=== PATIENT | male | born 1980 | race Caucasian/White ===

== ENCOUNTER → 2017-11-11 09:53 | Outpatient (REF) | payer OTHER, SELFPAY ==
[2017-11-11 13:53] LABS: Alanine Aminotransferase 64 U/L (12-78); Albumin Level 3.8 gm/dL (3.4-5.0); Albumin/Globulin Ratio 1.3 (1.1-1.8); Alkaline Phosphatase 72 U/L (46-116); Anion Gap 12.8 mEq/L (5-15); Aspartate Amino Transferase 23 U/L (15-37); Bilirubin,Total 0.4 mg/dL (0.2-1.0); Blood Urea Nitrogen 7 mg/dL (7-18); Calcium 8.5 mg/dL (8.5-10.1); Carbon Dioxide 28 mmol/L (21.0-32.0); Chloride 104 mmol/L (98-107); Chol/HDL Ratio 2.5 (1-3.5); Cholesterol 101 mg/dL (140-200); Creatinine,Serum 1.22 mg/dL (0.70-1.30); Estimated Glomerular Filt Rate 67 ml/min (>60); GFR (African American) 81 ML/MIN (>60); Globulin 2.9 gm/dl (1.3-3.2); Glucose 115 mg/dL (74-106); HDL Cholesterol 41 mg/dL (27-67); LDL Cholesterol 32 mg/dL (0-130); Potassium 3.8 mmoL/L (3.5-5.1); Sodium 141 mmol/L (136-145); Total Protein,Serum 6.7 gm/dL (6.4-8.2); Triglycerides 138 mg/dL (30-200); VLDL Cholesterol 28 mg/dL (0-40)
== END ==
LOC: LAB 09:53
PROVIDERS: Visit Provider Physician Assistant
DX: E78.5 Hyperlipidemia, unspecified (principal)
CPT/HCPCS: 80053; 80061

== ENCOUNTER → 2018-09-30 20:23 | Outpatient (CLI) | payer OTHER, SELFPAY | PROVIDERS: PCP Emergency Medicine; Visit Provider Specialist | DX: G47.33 Obstructive sleep apnea (adult) (pediatric) (principal) | CPT/HCPCS: 95811 ==

== ENCOUNTER → 2020-04-04 18:31 | Outpatient (CLI) | payer BC, SELFPAY ==
[2020-04-04 19:11] LABS: Basophils % 0.3 % (0.1-2.0); Chloride 97 mmol/L (98-107); Eosinophils # 0.1 K/mm3 (0.0-0.4); Eosinophils % 1.5 % (0.1-12.0); Hematocrit 47.5 % (42.0-52.0); Hemoglobin 16.5 g/dL (14.1-18.0); Lymphocytes # 1.1 K/mm3 (0.7-4.5); Lymphocytes % 20.9 % (10-50); Mean Corpuscular HGB Conc 34.8 g/dL (31.8-35.4); Mean Corpuscular Hemoglobin 30.3 pg (27.0-31.2); Mean Corpuscular Volume 86.9 fl (80-94); Mean Platelet Volume 10.4 fl (7.4-10.4); Monocytes # 0.4 K/mm3 (0.1-1.0); Monocytes % 7.8 % (1.7-9.3); Neutrophils # 3.6 K/mm3 (1.8-7.8); Neutrophils % 69.6 % (37.0-80.0); Platelet Count 174 K/mm3 (142-424); Potassium 4.5 mmoL/L (3.5-5.1); Red Blood Count 5.47 M/mm3 (4.60-6.20); Red Cell Distribution Width 13.6 % (11.5-17.5); Sodium 137 mmol/L (136-145); White Blood Count 5.1 K/mm3 (4.8-10.8)
[2020-04-04 19:14] LABS: Alanine Aminotransferase 63 U/L (12-78); Albumin Level 4.6 g/dl (3.5-5.0); Albumin/Globulin Ratio 1.8 (1.1-1.8); Alkaline Phosphatase 71 U/L (38-126); Anion Gap 15.5 mEq/L (5-15); Aspartate Amino Transferase 40 U/L (17-59); Bilirubin,Total 0.6 mg/dl (0.2-1.3); Blood Urea Nitrogen 17 mg/dl (9-20); Carbon Dioxide 29 mmol/L (22.0-30.0); Cholesterol 149 mg/dl (140-200); Estimated Glomerular Filt Rate 74 ml/min (>60); GFR (African American) 90 ML/MIN (>60); Globulin 2.6 g/dL (1.3-3.2); Total Protein,Serum 7.2 g/dl (6.3-8.2)
[2020-04-04 19:15] LABS: Calcium 9.1 mg/dl (8.4-10.2); Glucose 79 mg/dl (74-100); HDL Cholesterol 37 mg/dl (40-60)
[2020-04-04 19:18] LABS: Triglycerides 402 mg/dl (30-150)
[2020-04-04 19:31] LABS: T4 (Thyroxine) 7.5 ug/dl (5.53-11.0)
[2020-04-04 19:45] LABS: Thyroid Stimulating Hormone 1.11 uIU/mL (0.465-4.68)
[2020-04-11 13:29] LABS: 1,25 Dihydroxy Vitamin D 41 pg/mL (.); 1,25-Dihydroxy, Vitamin D-2 <10 pg/mL (.); 1,25-Dihydroxy, Vitamin D-3 41 pg/mL (.)
[2020-04-11 13:30] LABS: Testosterone,Total 166 ng/dL (264-916)
== END ==
PROVIDERS: Visit Provider Physician Assistant
DX: R10.9 Unspecified abdominal pain (principal); R53.83 Other fatigue
CPT/HCPCS: 80053; 80061; 82652; 84403; 84436; 84443; 85025

== ENCOUNTER → 2020-04-18 09:31 | Outpatient (CLI) | payer BC, SELFPAY ==
[2020-04-19 10:12] LABS: Testosterone,Total 185 ng/dL (264-916)
== END ==
PROVIDERS: Visit Provider Physician Assistant
DX: R79.89 Other specified abnormal findings of blood chemistry (principal)
CPT/HCPCS: 36415; 84403

== ENCOUNTER → 2020-04-26 11:16 | Outpatient (CLI) | payer BC, SELFPAY ==
[2020-04-26 13:46] LABS: Coronavirus 19 IgG Antibody Negative (Negative); Coronavirus 19 IgM Antibody Negative (Negative)
== END ==
PROVIDERS: Visit Provider Internal Medicine Gastroenterology
DX: Z01.818 Encounter for other preprocedural examination (principal); Z12.11 Encounter for screening for malignant neoplasm of colon
CPT/HCPCS: 36415; 86328

== ENCOUNTER 2020-04-27 07:39 | Day surgery (SDC) | payer BC, SELFPAY ==
[2020-04-24 10:12] VITALS: BMI 35.2
[2020-04-27] VITALS (8 sets, daily range): BP systolic 100–135; BP diastolic 51–79; PULSE 54–79; RESP 16–20; TEMP 36.2–36.6; O2SAT 94–98
--- NOTE | 2020-04-27 08:15 | P.PN_ITS ---
[facility] Anesthesia Checklist - Patient Identification Patient Identification: Arm Band, Verbal (Name & ) - Structural Data Admitted From: Home Planned Operative Procedure/s: EGD/Colonoscopy Consent for Planned Operative Procedure(s) Verified: Yes Verified Documents: Surgical Consent, History and Physical - NPO Status Verified Time NPO: 00:00 - Chart Verification Results Verified: CBC, BMP - Additional verifications Anesthesia Reactions: No - Airway Assessment C-Spine Mobility Assessed: Yes TMJ Mobility Assessed: Yes Dentition: Good Dentition - Neurological Assessment Level of Consciousness: Awake, Alert, Appropriate, Follows Commands Hx Seizures: No Numbness or tingling in extremities: No - Anesthesia Plan Anesthesia Risk discussed: Yes Anesthesia Plan: Verified ASA Class: III Anesthesia Type: MAC [facility] History I have reviewed the patient's past medical history: Yes Medical History: Reports:: Gastroesophageal Reflux Disease(GERD), Hyperlipidemia, Hypertension Denies:: Cancer, Diabetes Mellitus Type 1, Diabetes Mellitus Type 2, Internal Pacemaker, MRSA, Seizures *Have you ever received a pneumonia vaccine?: No *Have you received a flu vaccine this season?: Yes Other Medical History: Reports: Sinus Problems, Other Comment:: obesity, ISAIAH uses CPAP Anesthesia experience/problems:: no prior complications Laterality Cases: Right: Arthroscopy Shoulder Other Surgeries: Yes: Other. No: Pacemaker Amputation: No Fractures: No - *Social History Last grade of school completed: Some college Smoking Status: Former smoker # Packs/Day (cigarettes): 1 #Yrs smoked (if former smoker): 8 Alcohol Intake: never Alcohol Intake Frequency:: other Substance Use Type: denies use *Occupational Status:: employed Housing: house Household Members: family *Travel in the last 8 weeks: None Family Hx:: Diabetes, Heart Attack
--- NOTE | 2020-04-27 08:58 | HMH.PROC ---
[facility] Procedure Note Procedure Note:: Upper Endoscopy Procedure Report: Esophagogastroduodenoscopy with cold biopsies Endoscopost: Omero Locke II, MD Referring Physician: Lyn Laboy PA-C Date of Procedure: April 27, 2020 Equipment: Olympus GIF 180 standard upper endoscope Sedation: MAC sedation Indications: Mr. Anna is a 39-year-old gentleman with dyspepsia and functional bowel disease/IBS. The patient has had symptoms that are new. He reports epigastric abdominal pain at nighttime. He also reports some tightness especially in the lower abdomen, bloating and gassiness. He reports no belching. He has had no dysphagia. He does get some nausea in the mornings and a little early satiety. His heartburn and reflux are controlled with omeprazole. He has had reduced appetite but no weight loss. He does have alternating constipation and loose bowel movements. He reports no melena. He had an upper endoscopy a few years ago in [facility]. Procedure: Prior to the procedure, a history and physical exam was performed, and patient's medications and allergies were reviewed. The risks, benefits and alternatives of the sedation and procedure were discussed with the patient. All questions were answered and informed consent was obtained. The patient was brought to the procedure room. Patient identification and proposed procedure were verified by the physician and the nurse. The patient was placed in a left lateral decubitus position and the scope was passed under direct vision. Throughout the procedure, the patient's blood pressure, pulse, and oxygen saturations were monitored continuously. The upper GI endoscopy was accomplished without difficulty. The patient tolerated the procedure well. Findings: The scope was passed directly into the upper esophagus and advanced to the third portion of the duodenum. The post bulbar duodenum and duodenal bulb were normal with normal mucosa and conniventes. Cold biopsies were taken from the post bulbar duodenum to rule out celiac disease. The scope was withdrawn through a normal duodenal bulb and pylorus into the stomach. There was evidence of linear erythema of the antrum and body consistent with linear reactive gastropathy. The remainder of the antrum, body and fundus of the stomach were grossly normal. Upon retroflexion there was a small 2 cm hiatal hernia. 2 biopsies were taken in the antrum and along the lesser curvature for histology to rule out gastritis and/or H pylori. The scope was then withdrawn into the esophagus. There was no evidence of reflux esophagitis or Colin's. There were tertiary contractions and evidence of moderate esophageal dysmotility. The remainder of the esophageal mucosa was normal. Impression: 1. Nonerosive GERD with moderate esophageal dysmotility and small 2 cm hiatal hernia 2. Linear reactive gastropathy of antrum/body Plan: I will follow-up the biopsies. The patient does have functional dyspepsia and functional bowel disease. I will discuss dietary measures and treatment options. The patient does have obstipation with colonic fermentation. I will proceed with diagnostic colonoscopy.
--- NOTE | 2020-04-27 09:23 | P.PCN_ITS ---
[facility] Procedure Note Procedure Note:: Colonoscopy Procedure Report: Colonoscopy with cold snare polypectomy Endoscopist: Omero Locke II, MD Referring physician: Lyn Laboy PA-C Date of Procedure: April 27, 2020 Equipment: Olympus 180 variable stiffness pediatric colonoscope Sedation: MAC sedation Indication: Mr. Anna is a 39-year-old gentleman who is here for diagnostic colonoscopy. He has had dyspepsia and lower abdominal tightness and discomfort. He reports bloating and some gassiness. He has had bowel irregularity with constipation that may alternate with loose bowel movements. He does have obstipation/incomplete bowel evacuation/incomplete defecation with excessive wiping. Recently he has been taking some combined MiraLAX plus Metamucil). He did note some blood but no mucus. The blood is bright red. He reports that his paternal grandfather had colon cancer and his father had colon polyps. This is his first colonoscopy. Procedure: Prior to the procedure, a history and physical exam was performed, and patient's medications and allergies were reviewed. The risks, benefits and alternatives of the sedation and procedure were discussed with the patient. All questions were answered and informed consent was obtained. The patient was brought to the procedure room. Patient identification and proposed procedure were verified by the physician and the nurse. The patient was placed in a left lateral decubitus position and the scope was passed under direct vision. Throughout the procedure, the patient's blood pressure, pulse, and oxygen saturations were monitored continuously. The colonoscopy was accomplished without difficulty. The patient tolerated the procedure well. Findings: On digital rectal examination there was normal rectal tone. There were no external hemorrhoids. The colonoscope was introduced through the anal canal to the rectum and advanced to the cecum. The ileocecal valve and appendiceal orifice were identified. The scope was advanced a short distance into the ileum which appeared grossly normal. The scope was then withdrawn into the colon. The cecum, ascending and transverse colon and mucosa were grossly normal. There was a 2 to 3 mm polyp in the descending colon removed via cold snare polypectomy. There were very mildly scattered diverticuli throughout the descending and sigmoid colon (LEFT colon). The rectum itself was normal. Upon retroflexion within the rectum there were grade 1 internal hemorrhoids. The preparation was excellent throughout with Ray Preparation Score of 9. The cecal time was 12 minutes. Impression: 1. Diminutive descending colon polyp 2. Mild sigmoid diverticulosis 3. Grade 1 internal hemorrhoids Plan: The patient does have IBS/functional bowel disease. We will discuss additional dietary measures and treatment options. I will follow-up the polyp histology and recommend repeat screening/surveillance colonoscopy in 5 to 10 years based upon the pathology.
== END 2020-04-27 10:35 | disposition home or self-care (01) ==
LOC: OUTP 07:43
PROVIDERS: PCP Emergency Medicine; Visit Provider Internal Medicine Gastroenterology
PROC: 0DJ08ZZ Inspection of Upper Intestinal Tract, Via Natural or Artificial Opening Endoscopic (ICD-10-PCS; CPT 43235; principal; 2020-04-27 09:00)
DX: K63.5 Polyp of colon (principal); K57.30 Diverticulosis of large intestine without perforation or abscess without bleeding; K64.0 First degree hemorrhoids; Z83.71 Family history of colonic polyps; K21.9 Gastro-esophageal reflux disease without esophagitis; K22.4 Dyskinesia of esophagus; K44.9 Diaphragmatic hernia without obstruction or gangrene; K31.9 Disease of stomach and duodenum, unspecified; E78.5 Hyperlipidemia, unspecified; I10 Essential (primary) hypertension; Z87.39 Personal history of other diseases of the musculoskeletal system and connective tissue; Z87.891 Personal history of nicotine dependence
CPT/HCPCS: 45385; 43239

== ENCOUNTER → 2020-05-03 15:40 | Outpatient (CLI) | payer BC, SELFPAY ==
[2020-05-03 18:16] LABS: Hemoglobin A1C 5.4 % (4.0-6.0)
[2020-05-05 13:06] LABS: Estradiol 16.8 pg/mL (7.6-42.6)
== END ==
PROVIDERS: Visit Provider Urology
DX: E34.9 Endocrine disorder, unspecified (principal)
CPT/HCPCS: 36415; 82670; 83036

== ENCOUNTER → 2020-08-02 15:00 | Outpatient (CLI) | payer BC, SELFPAY ==
[2020-08-02 15:41] LABS: Basophils % 0.3 % (0.1-2.0); Eosinophils % 0.9 % (0.1-12.0); Hematocrit 46.8 % (42.0-52.0); Hemoglobin 16.2 g/dL (14.1-18.0); Lymphocytes % 19.2 % (10-50); Mean Corpuscular HGB Conc 34.5 g/dL (31.8-35.4); Mean Corpuscular Hemoglobin 30.3 pg (27.0-31.2); Mean Corpuscular Volume 87.8 fl (80-94); Mean Platelet Volume 9.1 fl (7.4-10.4); Monocytes # 0.4 K/mm3 (0.1-1.0); Monocytes % 8.6 % (1.7-9.3); Neutrophils # 3.6 K/mm3 (1.8-7.8); Platelet Count 174 K/mm3 (142-424); Red Blood Count 5.33 M/mm3 (4.60-6.20); Red Cell Distribution Width 13.6 % (11.5-17.5); White Blood Count 5.1 K/mm3 (4.8-10.8)
[2020-08-02 17:28] LABS: Alanine Aminotransferase 61 U/L (12-78); Albumin Level 4.4 g/dl (3.5-5.0); Alkaline Phosphatase 70 U/L (38-126); Aspartate Amino Transferase 37 U/L (17-59); Bilirubin,Direct 0.3 mg/dl (0.0-0.4); Bilirubin,Indirect 0.4 mg/dL (0.0-0.9); Bilirubin,Total 0.7 mg/dl (0.2-1.3); Bilirubin,Unconjugated 0.4 mg/dL (0.0-1.1); Total Protein,Serum 6.8 g/dl (6.3-8.2)
[2020-08-09 09:25] LABS: Testosterone, Total, LC/MS 607.2 ng/dL (264.0-916.0); Testosterone,Free 20.9 pg/mL (6.8-21.5)
== END ==
PROVIDERS: Visit Provider Urology
DX: E34.9 Endocrine disorder, unspecified (principal); R79.89 Other specified abnormal findings of blood chemistry
CPT/HCPCS: 36415; 80076; 84402; 84403; 85025

== ENCOUNTER → 2021-02-08 14:55 | Outpatient (CLI) | payer BC, SELFPAY ==
[2021-02-08 14:57] LABS: MANUAL DIFFERENTIAL MANUAL DIFFERENTIAL (MANUAL DIFF)
[2021-02-08 15:34] LABS: Basophils % 0.4 % (0.1-2.0); Eosinophils % 0.5 % (0.1-12.0); Hematocrit 45.7 % (42.0-52.0); Hemoglobin 14.9 g/dL (14.1-18.0); Lymphocytes % 16.4 % (10-50); Mean Corpuscular HGB Conc 32.7 g/dL (31.8-35.4); Mean Corpuscular Hemoglobin 27.6 pg (27.0-31.2); Mean Corpuscular Volume 84.5 fl (80-94); Mean Platelet Volume 8.9 fl (7.4-10.4); Monocytes # 0.5 K/mm3 (0.1-1.0); Monocytes % 8.1 % (1.7-9.3); Neutrophils # 4.7 K/mm3 (1.8-7.8); Neutrophils % 74.5 % (37.0-80.0); Platelet Count 190 K/mm3 (142-424); Red Blood Count 5.41 M/mm3 (4.60-6.20); Red Cell Distribution Width 13.8 % (11.5-17.5); White Blood Count 6.3 K/mm3 (4.8-10.8)
[2021-02-08 15:54] LABS: Eosinophils % 1 % (0-3); Lymphocytes % 22 % (10-50); Monocytes % 8 % (2-9); Neutrophils % 69 % (42-76); Platelet Estimate Normal; RBC Morphology Normal; Total Cells Counted 100
[2021-02-08 16:35] LABS: Alanine Aminotransferase 67 U/L (12-78); Albumin Level 4.6 g/dl (3.5-5.0); Alkaline Phosphatase 57 U/L (38-126); Aspartate Amino Transferase 41 U/L (17-59); Bilirubin,Direct 0.3 mg/dl (0.0-0.4); Bilirubin,Indirect 0.4 mg/dL (0.0-0.9); Bilirubin,Total 0.7 mg/dl (0.2-1.3); Bilirubin,Unconjugated 0.4 mg/dL (0.0-1.1); Total Protein,Serum 6.8 g/dl (6.3-8.2)
[2021-02-14 05:52] LABS: Testosterone, Total, LC/MS 349.1 ng/dL (264.0-916.0); Testosterone,Free 10.4 pg/mL (6.8-21.5)
== END ==
PROVIDERS: Visit Provider Urology
DX: E34.9 Endocrine disorder, unspecified (principal)
CPT/HCPCS: 36415; 80076; 84402; 84403; 85007; 85014; 85018; 85048; 85049

== ENCOUNTER → 2021-08-13 09:51 | Outpatient (CLI) | payer BC, SELFPAY ==
[2021-08-13 09:53] LABS: MANUAL DIFFERENTIAL MANUAL DIFFERENTIAL (MANUAL DIFF)
[2021-08-13 10:31] LABS: Basophils % 0.5 % (0.1-2.0); Eosinophils # 0.1 K/mm3 (0.0-0.4); Eosinophils % 0.8 % (0.1-12.0); Hematocrit 45.9 % (42.0-52.0); Hemoglobin 16.1 g/dL (14.1-18.0); Lymphocytes # 0.9 K/mm3 (0.7-4.5); Lymphocytes % 15.1 % (10-50); Mean Corpuscular Hemoglobin 29.7 pg (27.0-31.2); Mean Corpuscular Volume 84.9 fl (80-94); Mean Platelet Volume 9.3 fl (7.4-10.4); Monocytes # 0.4 K/mm3 (0.1-1.0); Monocytes % 7.1 % (1.7-9.3); Neutrophils # 4.3 K/mm3 (1.8-7.8); Neutrophils % 76.5 % (37.0-80.0); Platelet Count 202 K/mm3 (142-424); Red Cell Distribution Width 13.7 % (11.5-17.5); White Blood Count 5.6 K/mm3 (4.8-10.8)
[2021-08-13 11:51] LABS: Albumin Level 4.5 g/dl (3.5-5.0); Alkaline Phosphatase 55 U/L (38-126); Aspartate Amino Transferase 37 U/L (17-59); Bilirubin,Direct 0.3 mg/dl (0.0-0.4); Bilirubin,Indirect 0.5 mg/dL (0.0-0.9); Bilirubin,Total 0.8 mg/dl (0.2-1.3); Bilirubin,Unconjugated 0.4 mg/dL (0.0-1.1)
[2021-08-13 12:22] LABS: Prostate Specific Ag Screen 0.6 ng/ml (0.0-4.0)
[2021-08-13 12:32] LABS: Alanine Aminotransferase 44 U/L (12-78)
[2021-08-13 14:59] LABS: Lymphocytes % 20 % (10-50); Monocytes % 6 % (2-9); Neutrophils % 73 % (42-76); Platelet Estimate Normal; RBC Morphology Normal; Total Cells Counted 100
[2021-08-17 18:08] LABS: Testosterone, Total, LC/MS 333.5 ng/dL (264.0-916.0); Testosterone,Free 12.7 pg/mL (6.8-21.5)
== END ==
LOC: LAB 09:52
PROVIDERS: Visit Provider Urology
DX: E34.9 Endocrine disorder, unspecified (principal); Z12.5 Encounter for screening for malignant neoplasm of prostate
CPT/HCPCS: 36415; 80076; 84402; 84403; 85007; 85014; 85018; 85048; 85049; G0103

== ENCOUNTER → 2021-08-21 20:58 | Outpatient (CLI) | payer BC, SELFPAY | PROVIDERS: PCP Emergency Medicine; Visit Provider Nurse Practitioner Family | DX: G47.33 Obstructive sleep apnea (adult) (pediatric) (principal) | CPT/HCPCS: 95811 ==

== ENCOUNTER → 2021-12-12 17:00 | Outpatient (CLI) | payer BC, SELFPAY ==
[2021-12-12 18:03] LABS: Basophils % 0.4 % (0.1-2.0); Eosinophils % 0.9 % (0.1-12.0); Hematocrit 45.6 % (42.0-52.0); Hemoglobin 14.9 g/dL (14.1-18.0); Lymphocytes % 19.6 % (10-50); Mean Corpuscular HGB Conc 32.8 g/dL (31.8-35.4); Mean Corpuscular Hemoglobin 29.2 pg (27.0-31.2); Mean Corpuscular Volume 89.2 fl (80-94); Mean Platelet Volume 10.1 fl (7.4-10.4); Monocytes # 0.4 K/mm3 (0.1-1.0); Neutrophils # 3.5 K/mm3 (1.8-7.8); Neutrophils % 71.1 % (37.0-80.0); Platelet Count 168 K/mm3 (142-424); Red Blood Count 5.12 M/mm3 (4.60-6.20); Red Cell Distribution Width 13.5 % (11.5-17.5); White Blood Count 4.9 K/mm3 (4.8-10.8)
[2021-12-12 19:36] LABS: Alanine Aminotransferase 40 U/L (12-78); Albumin Level 4.3 g/dl (3.5-5.0); Albumin/Globulin Ratio 1.9 (1.1-1.8); Alkaline Phosphatase 59 U/L (38-126); Anion Gap 10.9 mEq/L (5-15); Aspartate Amino Transferase 28 U/L (17-59); Bilirubin,Total 0.6 mg/dl (0.2-1.3); Blood Urea Nitrogen 16 mg/dl (9-20); Calcium 8.9 mg/dl (8.4-10.2); Carbon Dioxide 28 mmol/L (22.0-30.0); Chloride 103 mmol/L (98-107); Chol/HDL Ratio 3.8 (1-3.5); Cholesterol 127 mg/dl (140-200); Estimated Glomerular Filt Rate 56 ml/min (>60); GFR (African American) 67 ML/MIN (>60); Globulin 2.3 g/dL (1.3-3.2); Glucose 87 mg/dl (74-100); HDL Cholesterol 33 mg/dl (40-60); Potassium 3.9 mmoL/L (3.5-5.1); Sodium 138 mmol/L (136-145); Total Protein,Serum 6.6 g/dl (6.3-8.2); Triglycerides 216 mg/dl (30-150); VLDL Cholesterol 43 mg/dL (0-40)
[2021-12-12 19:46] LABS: Direct LDL Cholesterol 55.43 mg/dL (100-129)
[2021-12-12 21:08] LABS: Thyroid Stimulating Hormone 0.71 uIU/mL (0.465-4.68)
[2021-12-14 08:15] LABS: Testosterone,Total 465 ng/dL (264-916)
== END ==
PROVIDERS: Visit Provider Physician Assistant
DX: Z00.00 Encounter for general adult medical examination without abnormal findings (principal); R06.02 Shortness of breath; R07.9 Chest pain, unspecified; E66.9 Obesity, unspecified; Z68.35 Body mass index [BMI] 35.0-35.9, adult
CPT/HCPCS: 80053; 80061; 82306; 84403; 84443; 85025

== ENCOUNTER → 2021-12-27 09:14 | Outpatient (CLI) | payer BC, SELFPAY ==
--- NOTE | 2021-12-27 09:15 | CA_ITS ---
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(R) Ht: 6 ft 1 in Wt: 260lbs BSA: 2.41 BP: 140/82 mmHg Indications: SOA, CP, ex smoker, HTN, hyperlipidemia, ISAIAH, GERD 2D Dimensions LVOT 2.25 cm (M/F) 1.5-2.5 LVEF (Spivey's) 60.60 % M: 52 - 72 LV Volume 127.00 mL M: 62 - 150 LV Volume Index 52.91 mL/m2 M: 34 - 74 LA Volume 29.10 mL LA Volume Index 12.12 mL/m2 (M/F) 16-34 M-Mode Dimensions RVDd 3.11 cm (0.9-2.6) LA Diam 3.26 cm (1.9-4.0) LVDd 5.10 cm (3.5-5.7) Ao Diam 3.48 cm (2.0-3.7) LVDs 3.93 cm (3.5-5.7) IVSd 1.25 cm (0.6-1.1) PWd 0.82 cm (0.6-1.1) EF (Teich) 45.80% FS 22.90% EDV (Teich) 123.80 mL ESV (Teich) 67.10 mL LV Diastology E Decel Time 180.00 (160-240 msec) E/A Ratio 0.8 MED E' 6.90 (< 7 cm/sec) E'/MED E' Ratio 8.26 (>14) LAT E' 9.50 (<10 cm/sec) E/LAT E' Ratio 6.00 (>14) Mitral Valve MV E Max Cliff. 57.00 (40-130 cm/s) MV A Velocity 73.00 (40-130 cm/s) E/A Ratio 0.78 MV Decel. Time 180.00 (160-240 ms) MV PHT 53.00 ms Left Ventricle Left atrium is mildly enlarged, left ventricle is normal size, mild concentric left ventricular hypertrophy, estimated ejection fraction 55% with no regional wall motion abnormality, grade 1 diastolic dysfunction seen without tissue Doppler evidence of late left atrial pressure. Right Ventricle Right atrium and right ventricle are mildly enlarged with normal contractility. Aortic Valve Aortic valve is minimally thickened and fibrosed there is no aortic stenosis or aortic insufficiency. Mitral Valve Mitral valve grossly normal, there is trace mitral regurgitation. Tricuspid Valve Tricuspid grossly normal, there is trace tricuspid regurgitation, tricuspid regurgitation jet velocity is inadequate for calculation of the right ventricular systolic pressure. Pulmonic Valve Pulmonic valve is poorly visualized. Great Vessels Aortic root is normal size. Inferior vena cava is normal size with normal inspiratory collapse. Pericardium No significant pericardial effusion noted. Conclusion 1. Mild biatrial enlargement, normal left ventricular size, mild concentric left ventricular hypertrophy, estimated ejection fraction 55% with no regional wall motion abnormality, grade 1 diastolic dysfunction seen without tissue Doppler evidence of raise left atrial pressure. 2. Trace mitral and tricuspid regurgitation. 3. No significant pericardial effusion. 4. Inferior vena cava is poorly visualized. Electronically signed by : Dwain Saunders MD 12/27/2021 16:31:18
--- NOTE | 2021-12-27 09:15 | CA_ITS ---
APPROVED REPORT Exam: Exercise Treadmill Technologist: Poppy Valente, Ht: 6 ft 1 in Wt: 267 lbs BSA: 2.43 m2 HR: 65 bpm BP: 136/83 mmHg Rhythm: NSR Medical History Medications: Omeprazole,,,,, Trazadone,,,,, Buspirone,,,,, PaXIL,,,,, CiALIS,,,,, RoSUVASTATIN,,,,, Lisinopri/HCTZ,,,,, XyOSTED,,,,, Allergies: No known drug allergies Stress Test Details Test: Samy, Exercise stress testing was performed using a modified Samy protocol. HR Resting HR: 65 bpm Max Heart Rate (APMHR): 178.629247 bpm Max HR Achieved: 152 bpm Target HR (85% APMHR): 151.228291 bpm % of APMHR: 85.39 Recovery HR: 98 bpm BP Resting BP: 132/89 mmHg Max BP: 200/101 mmHg Recovery BP: 164.0/98.0 mmHg ECG Resting ECG: NSR Clinical Reason for Termination: Dyspnea Chest pain Exercise duration: 10:32 min Highest Stage Achieved: Exercise capacity: 12.8 METs Stress ECG Conclusion PT EXERCISED 10 MIN 32 SECONDS. 12.8 METS PT HAD NO CP BUT TIGHTNESS NOTED AT PEAK STRESS. 3 PVCS NOTED IN FIRST MINUTE OF RECOVERY. <1.[address] SEGMENT CHANGES. ABNORMAL DUE TO SYMPTOMS, PVCS, HTN RESPONSE. MAX RP=324. % OF BE=916. MAX BP= 170/75. METS=12.8. TEST STOPPED DUE TO=SOA, CHEST TIGHTNESS. Test Summary REST . . . . . . . Standing REST . . . . . . . Sitting REST 12:56 0.0 0.0 65 . 132/ 89 . . Stage 1 01:00 10.0 1.7 91 . . . . Stage 1 02:00 10.0 1.7 96 . . . . Stage 1 03:00 10.0 1.7 97 . 140/ 55 . . Stage 2 01:00 12.0 2.5 103 . . . . Stage 2 02:00 12.0 2.5 108 . . . . Stage 2 03:00 12.0 2.5 108 . 150/ 70 . . Stage 3 01:00 14.0 3.4 117 . . . . Stage 3 02:00 14.0 3.4 120 . . . . Stage 3 03:00 14.0 3.4 124 . 160/ 80 . . Stage 4 01:00 16.0 4.2 144 . . . . Stage 4 01:32 16.0 0.7 150 . . . Stop exercise at 10:32 RECOVERY 01:00 0.0 0.0 131 . 170/ 75 . . RECOVERY 02:00 0.0 0.0 109 . 170/ 75 . . RECOVERY 03:00 0.0 0.0 102 . 200/101 . . RECOVERY 04:00 0.0 0.0 93 . 200/101 . . RECOVERY 05:00 0.0 0.0 96 . 200/101 . . RECOVERY 06:00 0.0 0.0 96 . 177/ 95 . . RECOVERY 07:00 0.0 0.0 96 . 177/ 95 . . RECOVERY 07:45 0.0 0.0 102 . 164/ 98 . . Electronically signed by : Diaz Bennett MD 12/27/2021 14:50:12
== END ==
LOC: RT 09:15
PROVIDERS: PCP Emergency Medicine; Visit Provider Physician Assistant
DX: R06.02 Shortness of breath (principal); R07.9 Chest pain, unspecified
CPT/HCPCS: 93017; 93306

== ENCOUNTER → 2022-01-21 12:25 | Outpatient (CLI) | payer BC, SELFPAY ==
--- NOTE | 2022-01-21 | CA_ITS ---
APPROVED REPORT Exam: Exercise Treadmill Technologist: Asha Rodriguez, Ht: 6 ft 1 in Wt: 260 lbs BSA: 2.41 m2 HR: 52 bpm BP: 135/81 mmHg Rhythm: nsr,early repolarization changes,st-t abns in leads III,aVF Indications: CP Medical History Medical History: Hyperlipidemia, HTN Medications: Lisinopril,,,,, Omeprazole,,,,, Trazadone,,,,, Buspirone,,,,, PaXIL,,,,, CiALIS,,,,, RoSUVASTATIN,,,,, XyOSTED,,,,, Allergies: No known drug allergies Cardiac Risk Factors: HTN, Hyperlipidemia, FHX of CAD Stress Test Details Test: Samy HR Resting HR: 58 bpm Max Heart Rate (APMHR): 178.115018 bpm Max HR Achieved: 122 bpm Target HR (85% APMHR): 151.907816 bpm % of APMHR: 68.54 Recovery HR: 103 bpm BP Resting BP: 135.0/81.0 mmHg Max BP: 192.0/80.0 mmHg Recovery BP: 180.0/82.0 mmHg ECG Resting ECG: NSR,EARLY REPOLARIZATION CHANGES,ST-T ABNS IN LEADS III,aVF Clinical Exercise duration: 10:47 min Highest Stage Achieved: Exercise capacity: 12.8 METs Stress ECG Conclusion EXERCISED 10:47 ON SAMY PROTOCOL INTO STAGE 4. MAX HEART RATE 122 BPM WHICH IS 69% OF PM FOR AGE. MAX BP 192/80. METS = 12.8. TEST STOPPED DUE TO SOA AND FATIGUE. TIGHTNESS IN MID HEST. RARE PAC. NORMALIZATION OF BASELINE T WAVE ABNS WITH EXERCISE. NORMAL ST RESPONSE TO EXERCISE. NORMAL GXT TO HR ACHIEVED (69%) BLUNTED HR RESPONSE ON BETA HUI. MYOVIEW IMAGES REPORTED SEPARATELY. Test Summary REST . . . . . . . Standing REST . . . . . . . Sitting REST 04:21 0.0 0.0 58 . 135/ 81 . . Stage 1 01:00 10.0 1.7 84 . . . . Stage 1 02:00 10.0 1.7 85 . . . . Stage 1 03:00 10.0 1.7 83 . 162/ 80 . . Stage 2 01:00 12.0 2.5 89 . . . . Stage 2 02:00 12.0 2.5 91 . . . . Stage 2 03:00 12.0 2.5 94 . 174/ 80 . . Stage 3 01:00 14.0 3.4 98 . . . . Stage 3 02:00 14.0 3.4 105 . . . . Stage 3 03:00 14.0 3.4 108 . 192/ 80 . . Stage 4 . . . . . . . Myoview Injected Stage 4 01:00 16.0 4.2 118 . . . . Stage 4 01:47 16.0 4.2 122 . . . Stop exercise at 10:47 RECOVERY 01:00 0.0 0.0 102 . 180/ 82 . . RECOVERY 02:00 0.0 0.0 74 . 180/ 82 . . RECOVERY 03:00 0.0 0.0 67 . 165/ 78 . . RECOVERY 04:00 0.0 0.0 62 . 157/ 80 . . RECOVERY 05:00 0.0 0.0 66 . 157/ 80 . . RECOVERY 05:27 0.0 0.0 68 . 146/ 82 . . Electronically signed by : Dwain Saunders MD 01/22/2022 10:14:12
--- NOTE | 2022-01-21 12:30 | NM_ITS ---
APPROVED REPORT Exam: Nuclear Stress Test Indication: Chest pain, SOB, HTN, High cholesterol, Family history Patient Location: Outpatient Stress Tech: Mariia Wileynkson [place] Tech:Aline Nassar, ARRT, RT (R)(N) Ht: 6 ft 1 in Wt: 260 lbs HR: 58 bpm BP: 135/81 mmHg BSA: 2.41 m2 BMI: 34.2 History: Chest pain, SOB, HTN, High cholesterol, Family history Procedure: Patient exercised on Samy protocol 10:47 minutes and sec, resting heart rate 58 bpm, resting blood pressure 135/81 mmHg, with exercise maximum heart rate achived was 122 bpm which is 69 % of the maximum predicted heart rate and blood pressure was 192/80 mmHg. Test was stopped due to SOB. Patient denied any complaint of chest pain. Patient has Good exercise capacity, achieved 12.8 METs of workload on treadmill, the blood pressure response to exercise was Adequate. Electrocardiogram Resting electrocardiogram shows sinus rhythm, with exercise there is less than 1.[address] segment depression noted from the baseline EKG. The EKG portion of the exercise Myoview is nondiagnostic as patient did not achieve the target heart rate. Cardiac Stress and Resting SPECT Images: Cardiac Stress and Resting SPECT images were obtained using technetium 99m Myoview 32.4 mCi stress and 10.18 mCi at rest. Gated SPECT analysis of segmental wall motion and calculation of the ejection fraction also done. Cardiac stress and resting SPECT images show uniform myocardial activity without segmental perfusion abnormality, computer derived ejection fraction is 53% with no regional wall motion abnormality, right ventricle is normal size and contractility. Conclusion: 1. The EKG portion of the exercise Myoview is nondiagnostic as patient did not achieve the target heart rate, patient has good exercise capacity achieved 12.8 METs of workload on treadmill, the blood pressure response to exercise was adequate, there was no exercise-induced chest discomfort. 2. No scintigraphic evidence of reversible ischemia seen at this level of exercise, computer derived ejection fraction is 53% with no regional wall motion abnormality, right ventricle is normal size and contractility. Electronically signed by : Dwain Saunders MD 01/22/2022 10:52:27
--- NOTE | 2022-01-21 13:52 | HMH.ITSHM ---
Current Home Medications as stated by this patient Luis M Anna or investment representative. []TRAZODONE TESTOSTERONE TADALAFIL ROSUVASTATIN PAROXETINE OMEPRAZOLE METOPROLOL LISINOPRIL BUSPIRONE
== END ==
LOC: RAD 12:26
PROVIDERS: PCP Emergency Medicine; Visit Provider Physician Assistant
DX: R06.00 Dyspnea, unspecified (principal); R07.9 Chest pain, unspecified; I10 Essential (primary) hypertension; E78.5 Hyperlipidemia, unspecified; K21.9 Gastro-esophageal reflux disease without esophagitis; R94.31 Abnormal electrocardiogram [ECG] [EKG]; R94.39 Abnormal result of other cardiovascular function study
CPT/HCPCS: 78452; 93017; A9502

== ENCOUNTER 2024-03-14 11:48 | Outpatient (CLI) | payer BC, SELFPAY ==
[2024-03-14 18:56] LABS: Basophils # 0.1 K/mm3 (0-0.2); Basophils % 1.2 % (0.1-2.0); Eosinophils # 0.1 K/mm3 (0.0-0.4); Eosinophils % 1.5 % (0.1-12.0); Hematocrit 44.7 % (42.0-52.0); Hemoglobin 14.7 g/dL (14.1-18.0); Lymphocytes # 1.1 K/mm3 (0.7-4.5); Lymphocytes % 26.1 % (10-50); Mean Corpuscular Hemoglobin 30.3 pg (27.0-31.2); Mean Corpuscular Volume 91.9 fl (80-94); Mean Platelet Volume 11.4 fl (7.4-10.4); Monocytes # 0.4 K/mm3 (0.1-1.0); Monocytes % 9.9 % (1.7-9.3); Neutrophils # 2.6 K/mm3 (1.8-7.8); Neutrophils % 61.2 % (37.0-80.0); Platelet Count 158 K/mm3 (142-424); Red Blood Count 4.86 M/mm3 (4.60-6.20); Red Cell Distribution Width 14.4 % (11.5-17.5); White Blood Count 4.2 K/mm3 (4.8-10.8)
[2024-03-14 19:28] LABS: Alanine Aminotransferase 47 U/L (12-78); Albumin Level 4.1 g/dl (3.5-5.0); Albumin/Globulin Ratio 1.6 (1.1-1.8); Alkaline Phosphatase 56 U/L (38-126); Anion Gap 12.9 mEq/L (5-15); Aspartate Amino Transferase 34 U/L (17-59); Bilirubin,Total 0.6 mg/dl (0.2-1.3); Blood Urea Nitrogen 12 mg/dl (9-20); Calcium 9.2 mg/dl (8.4-10.2); Carbon Dioxide 25 mmol/L (22.0-30.0); Chloride 103 mmol/L (98-107); Chol/HDL Ratio 4.6 (1-3.5); Cholesterol 139 mg/dl (140-200); Estimated Glomerular Filt Rate 73 ml/min (>60); GFR (African American) 88 ML/MIN (>60); Globulin 2.5 g/dL (1.3-3.2); Glucose 90 mg/dl (74-100); HDL Cholesterol 30 mg/dl (40-60); Potassium 3.9 mmoL/L (3.5-5.1); Sodium 137 mmol/L (136-145); Total Protein,Serum 6.6 g/dl (6.3-8.2); Triglycerides 303 mg/dl (30-150); VLDL Cholesterol 61 mg/dL (0-40)
[2024-03-14 19:39] LABS: Direct LDL Cholesterol 62.04 mg/dL (100-129)
[2024-03-14 19:48] LABS: 25-OH Vitamin D, Total 42.8 ng/mL (30-100)
[2024-03-14 20:04] LABS: Hemoglobin A1C 5.2 % (4.0-6.0)
[2024-03-14 20:05] LABS: Prostate Specific Ag Screen 0.6 ng/ml (0.0-4.0); Thyroid Stimulating Hormone 1.32 uIU/mL (0.465-4.68)
[2024-03-14 20:24] LABS: Vitamin B12 589 pg/mL (239-931)
[2024-03-19 10:06] LABS: Testosterone, Total, LC/MS 352.6 ng/dL (264.0-916.0)
== END 2024-03-14 23:59 | disposition home or self-care (01) ==
LOC: LAB.DROPOF 03-15 11:48
PROVIDERS: PCP Physician Assistant; Visit Provider Physician Assistant
DX: I10 Essential (primary) hypertension (principal); E78.5 Hyperlipidemia, unspecified; R53.83 Other fatigue
CPT/HCPCS: 84402; 84403; 80050; 80053; 80061; 82306; 82607; 83036; 84443; 85025; G0103